=== PATIENT | male | born 1980 | race African-American/Black ===

== ENCOUNTER 2017-04-06 18:07 | Emergency (ER) | payer SELFPAY ==
[2017-04-07 09:21] LABS: NEGATIVE OBC STREP NEG; POSITIVE OBC STREP POS
== END 2017-04-06 19:17 | disposition home or self-care (01) ==
LOC: ER 18:07
DX: J02.8 Acute pharyngitis due to other specified organisms (principal); B97.89 Other viral agents as the cause of diseases classified elsewhere; B36.0 Pityriasis versicolor; J06.9 Acute upper respiratory infection, unspecified
CPT/HCPCS: 87070; 87880; 99283

== ENCOUNTER 2017-04-24 07:07 | Emergency (ER) | payer OTHER ==
[2017-04-24] MEDS ORDERED: fentaNYL PF VIAL 100 MCG/2 ML VIAL (07:37)
[2017-04-24] MEDS: fentaNYL PF VIAL 100 MCG/2 ML VIAL IV (07:40)
[2017-04-24] MEDS: PROPOFOL 10 MG/ML (20ML) VIAL. IV (08:13)
[2017-04-24] MEDS ORDERED: fentaNYL PF VIAL 100 MCG/2 ML VIAL IV (09:15)
== END 2017-04-24 09:30 | disposition home or self-care (01) ==
LOC: ER 07:07
DX: S43.015A Anterior dislocation of left humerus, initial encounter (principal); W18.39XA Other fall on same level, initial encounter; Y93.01 Activity, walking, marching and hiking; Y99.8 Other external cause status; Y92.481 Parking lot as the place of occurrence of the external cause
CPT/HCPCS: 23650; 73030; 96374; 99284-25; J2704; J3010